=== PATIENT | female | born 1995 | race African-American/Black ===

== ENCOUNTER → 2017-12-15 | Outpatient (CLI) | payer MEDICAID ==
[~2017-12-15] MED LIST: OSEL75 PO; Z.0.NO CURRENT MEDS
== END ==
LOC: HPND 07:38
PROVIDERS: ATTEND Obstetrics & Gynecology
DX: O35.1XX0 Maternal care for (suspected) chromosomal abnormality in fetus, not applicable or unspecified (principal)
CPT/HCPCS: 76811; 76817